=== PATIENT | male | born 1960 | race Caucasian/White ===

== ENCOUNTER 2018-08-21 00:48 | Inpatient (IN) | payer OTHER ==
[~2018-08-21] VITALS: Ht 175.3 cm; Wt 80.0 kg
[2018-08-21] MEDS ORDERED: ONDANSETRON HCL 4MG/2ML INJ IV STA (01:38)
[2018-08-21] MEDS ORDERED: LORAZEPAM 1MG TABLET PO ONE (01:45)
[2018-08-21] MEDS ORDERED: ASPIRIN 325MG EC TABLET PO ONE (01:45)
[2018-08-21 01:59] LABS: BASOPHILS % 1.3 % (0.0-2.0); HEMATOCRIT. 48.3 % (42.0-52.0); HEMOGLOBIN. 17.1 g/dL (14.0-18.0); MEAN CORPUSCULAR HEMOGLOBIN 30.2 pg (28.0-32.0); MEAN CORPUSCULAR VOLUME 85.5 fL (80.0-94.0); MONOCYTES % 6.8 % (2.0-8.0); NEUTROPHILS % 52.9 % (40.0-76.0); PLATELET 169 x1000/uL (130-400); RED BLOOD CELL COUNT 5.65 mill/uL (4.7-6.1); RED CELL DISTRIBUTION WIDTH 13.6 % (11.6-14.6)
[2018-08-21 02:03] LABS: CHLORIDE 107 mEq/L (98-107); PROTHROMBIN TIME 10.7 sec (9.6-11.0)
[2018-08-21 02:07] LABS: ETHANOL BLOOD < 10 mg/dL
[2018-08-21] MEDS ORDERED: DILTIAZEM HCL 5MG/ML 5ML VIAL IV ONE (02:15)
[2018-08-21 02:50] LABS: CLARITY URINE CLEAR (CLEAR); COLOR URINE YELLOW (YELLOW); KETONES URINE 1+ (NEGATIVE); LEUKOCYTE ESTERASE URINE NEGATIVE (NEGATIVE); NITRITE URINE NEGATIVE (NEGATIVE); OCCULT BLOOD URINE NEGATIVE (NEGATIVE); PROTEIN URINE NEGATIVE (NEGATIVE); SPECIFIC GRAVITY URINE 1.011 (1.005-1.030); UROBILINOGEN URINE 0.2 E.U./dL (0.2-1.0)
[2018-08-21 03:10] LABS: *AMPHETAMINES SCREEN URINE NEGATIVE (NEGATIVE); *BARBITURATES SCREEN URINE NEGATIVE (NEGATIVE); *BENZODIAZEPINES SCREEN URINE NEGATIVE (NEGATIVE); *COCAINE SCREEN URINE NEGATIVE (NEGATIVE); METHADONE URINE SCREEN NEGATIVE (NEGATIVE); OPIATES URINE SCREEN NEGATIVE (NEGATIVE)
[2018-08-21 03:11] LABS: CANNABINOID URINE SCREEN NEGATIVE (NEGATIVE); PHENCYCLIDINE URINE SCREEN NEGATIVE (NEGATIVE)
[2018-08-21] MEDS ORDERED: LORAZEPAM 0.5MG TABLET PO ONE (03:45)
[2018-08-21 06:46] VITALS: BP 106/73
[2018-08-21 06:50] VITALS: BP 106/73
[2018-08-21 08:00] VITALS: BP 130/79
[2018-08-21] MEDS ORDERED: CLONIDINE 0.1MG TABLET PO PRN (08:00)
[2018-08-21] MEDS ORDERED: HYDROCODONE/APAP 7.5/325MG 1 TAB TABLET PO PRN (08:00)
[2018-08-21] MEDS ORDERED: ONDANSETRON HCL 4MG/2ML INJ IV PRN (08:00)
[2018-08-21] MEDS ORDERED: ENOXAPARIN 40MG/0.4ML SYR SUBCUT SCH (09:00)
[2018-08-21 09:50] LABS: CHLORIDE 111 mEq/L (98-107)
[2018-08-21] MEDS: ASPIRIN 81MG EC TABLET PO SCH (10:43)
[2018-08-21] MEDS: THIAMINE HCL 100MG TABLET PO SCH (10:43)
[2018-08-21 12:00] VITALS: BP 120/77
[2018-08-21] MEDS ORDERED: LORAZEPAM 2MG/ML CPJ IV PRN ×2 (12:15→16:15)
[2018-08-21] MEDS: DILTIAZEM HCL 60MG TABLET PO SCH ×2 (13:48→20:54)
[2018-08-21 15:43] LABS: CREATINE KINASE MB FRACTION 1.5 ng/mL (0.5-3.6)
[2018-08-21 16:00] VITALS: BP 118/61
[2018-08-21] MEDS: APIXABAN 5 MG TABLET PO SCH (17:02)
[2018-08-21] MEDS ORDERED: NEBI2.5T2 PO (18:43)
[2018-08-21] MEDS ORDERED: AMLO5TAB4 PO (18:44)
[2018-08-21] MEDS ORDERED: PITA2TAB2 PO (18:45)
[2018-08-21 20:00] VITALS: BP 118/74
[2018-08-22 01:09] LABS: CREATINE KINASE 146 IU/L (39-308)
[2018-08-22 01:10] LABS: CREATINE KINASE MB FRACTION < 1.0 ng/mL (0.5-3.6)
[2018-08-22] MEDS: DILTIAZEM HCL 60MG TABLET PO SCH (05:51)
[2018-08-22 08:00] VITALS: BP 112/62
[2018-08-22] MEDS: APIXABAN 5 MG TABLET PO SCH (09:00)
[2018-08-22] MEDS: ASPIRIN 81MG EC TABLET PO SCH (09:03)
[2018-08-22] MEDS: THIAMINE HCL 100MG TABLET PO SCH (09:03)
[2018-08-22 09:31] LABS: CHLORIDE 110 mEq/L (98-107)
[2018-08-22 09:51] LABS: T4 FREE 1.21 ng/dL (0.76-1.46)
[2018-08-22 10:42] VITALS: BP 112/62
== END 2018-08-22 12:31 | disposition home or self-care (01) | DRG 310 ==
LOC: ER 00:48 → 6WST 02:41 → EDBEDREQ 02:44 → EDBEDREQTM 02:44 → ENRESERV 04:10
PROVIDERS: ADMIT Internal Medicine Nephrology; ATTEND Internal Medicine Nephrology
DX: I48.0 Paroxysmal atrial fibrillation (principal); E78.00 Pure hypercholesterolemia, unspecified; E78.5 Hyperlipidemia, unspecified; F41.0 Panic disorder [episodic paroxysmal anxiety]; I10 Essential (primary) hypertension; I34.0 Nonrheumatic mitral (valve) insufficiency; F41.9 Anxiety disorder, unspecified; I34.1 Nonrheumatic mitral (valve) prolapse; R07.89 Other chest pain; Z79.01 Long term (current) use of anticoagulants
CPT/HCPCS: 36415; 71045; 80048; 80305; 80320; 82550; 82553; 83880; 84439; 84443; 84484; 93005; 93306; 99285; J1650; J2060; J2405; J3490; G0480